=== PATIENT | female | born 1985 | race Caucasian/White ===

== ENCOUNTER 2016-08-18 06:52 | Day surgery (SDC) | payer BC, SELFPAY ==
[~2016-08-18 06:52] MED LIST: ANTIBIOTIC; BCP; BIRTH CONTROL PILL PO; CIPRO250 MG PO; COLACE100 MG PO; DULCOLAX10 MG/SUPP RC; IBUPROFEN200 M3 PO; IRON325 MG PO; KEFLEX500 MG PO; MELATONIN PO; MIDOL CAPLET1 EAC1 PO; PRENATAL1 EACH PO; SKELAXIN800 MG PO; SURFAK240 MG PO; TYLENOL #31 TA1 PO; VICODIN 5/500 T1 TAB PO; VITAMIN B COMPL1 TAB PO; VITAMIN C PO
[2016-08-18 07:39] LABS: URINE APPEARANCE CLEAR; URINE BILIRUBIN NEGATIVE (NEG); URINE BLOOD SMALL (NEG); URINE COLOR YELLOW; URINE GLUCOSE (UA) NEGATIVE (NEG); URINE KETONE MODERATE (NEG); URINE LEUKOCYTE ESTERASE POSITIVE (NEG); URINE NITRITE NEGATIVE (NEG); URINE PROTEIN NEGATIVE (NEG); URINE SPECIFIC GRAVITY 1.015 (1.003-1.030)
[2016-08-18 07:50] LABS: PROTHROMBIN TIME 11.5 SECONDS (9.0-13.6)
[2016-08-18 07:50] LABS: URINE RBC 0-2 /[HPF] (0-5)
[2016-08-19 07:33] LABS: BASO % 0.2 % (0-2); EOS % 0.1 % (0-7); HCT-HEMATOCRIT 39.7 % (34.0-49.0); HGB-HEMOGLOBIN 13.3 gm/dl (12.0-15.5); IMMATURE GRANULOCYTES ABSOLUTE 0.02 tho/cmm (0-0.03); IMMATURE GRANULOCYTES PERCENT 0.2 % (0-0.3); LYMPH % 24.2 % (20-45); LYMPH ABSOLUTE COUNT 2.2 tho/cmm (0.8-4.5); MCH (MEAN CORPUSCULAR HGB) 30.3 pg (28.0-32.0); MCHC MEAN CORPUSCULAR HGB CONC 33.5 % (32.0-36.0); MCV (MEAN CELL VOLUME) 90.4 fl (82.0-96.0); MEAN PLATELET VOLUME 9.9 cmc (9.4-12.4); MONOCYTE ABSOLUTE COUNT 0.6 tho/cmm (0.0-1.2); NEUTROPHIL ABSOLUTE COUNT 6.4 tho/cmm (1.6-8.0); NEUTROPHIL-AUTOMATED 6.4 tho/cmm (1.6-8.0); NEUTROPHILS % 69.3 % (40-80); PLATELET COUNT 266 tho/cmm (150-450); RED BLOOD COUNT 4.39 mil/cmm (4.00-5.20); RED CELL DISTRIBUTION WIDTH 12.5 % (12.4-16.4); WHITE BLOOD COUNT 9.2 tho/cmm (4.0-10.0)
[2016-08-19 07:40] LABS: ANION GAP 9 mmol/L (0-20); BLOOD UREA NITROGEN 5 mg/dl (6-24); CALCIUM 8.2 mg/dl (8.5-10.5); CARBON DIOXIDE-VENOUS 32 mmol/L (22-32); CHLORIDE 106 mmol/l (96-110); CREATININE 0.68 mg/dl (0.50-1.10); GLUCOSE 106 mg/dL (70-110); POTASSIUM 3.8 mmol/L (3.7-5.1); SODIUM 143 mmol/L (135-145); eGFR VALUE FOR BLACK >90 mL/Min
[2016-08-19] MEDS ORDERED: PERCOCET 5-3251 EACH PO (10:53)
[2016-08-19] MEDS ORDERED: ZOFRAN4 M2 PO (10:54)
[2016-08-19] MEDS ORDERED: DULCOLAX10 MG PR (10:56)
[2016-08-19] MEDS ORDERED: SURFAK240 M2 PO (10:59)
[2016-08-19 11:26] LABS: URINE APPEARANCE CLEAR; URINE BILIRUBIN NEGATIVE (NEG); URINE BLOOD NEGATIVE (NEG); URINE COLOR YELLOW; URINE GLUCOSE (UA) NEGATIVE (NEG); URINE KETONE NEGATIVE (NEG); URINE LEUKOCYTE ESTERASE NEGATIVE (NEG); URINE NITRITE NEGATIVE (NEG); URINE PROTEIN NEGATIVE (NEG)
== END 2016-08-19 11:40 ==
LOC: SHSB 06:52 → ORW 09:02 → PACU 11:15 → OBGE 13:05
PROVIDERS: Obstetrics & Gynecology
PROC: 0UTC4ZZ Resection of Cervix, Percutaneous Endoscopic Approach (ICD-10-PCS; principal; 2016-08-18)
PROC: 0UB74ZZ Excision of Bilateral Fallopian Tubes, Percutaneous Endoscopic Approach (ICD-10-PCS; principal; 2016-08-18)
PROC: 0UT94ZZ Resection of Uterus, Percutaneous Endoscopic Approach (ICD-10-PCS; principal; 2016-08-18)
DX: G89.29 Other chronic pain (principal); R10.2 Pelvic and perineal pain; Z87.410 Personal history of cervical dysplasia; Z98.818 Other dental procedure status; Z79.899 Other long term (current) drug therapy; Z98.890 Other specified postprocedural states
CPT/HCPCS: J0690; J1170; J2270; J3480; J7030